=== PATIENT | female | born 1990 | race Caucasian/White ===

== ENCOUNTER 2016-12-17 13:27 | Observation (INO) ==
[2016-12-17 14:05] LABS: Basophils # 0.1 K/mcL (0.0-0.2); Basophils % 0.6 %; Eosinophils # 0.1 K/mcL (0.0-0.6); Eosinophils % 0.9 %; Hematocrit 34.9 % (35.3-44.9); Immature Granulocytes % 4.7 % (0-4); Lymphocytes # 2.1 K/mcL (0.6-4.6); Lymphocytes % 12.6 %; Mean Corpuscular HGB Conc 34.4 g/dL (31.6-35.5); Mean Corpuscular Hemoglobin 28.8 pg (28.0-33.3); Mean Corpuscular Volume 83.7 fL (83.0-100.0); Mean Platelet Volume 10.1 fL (9.4-12.4); Monocytes # 1.1 K/mcL (0.0-1.3); Monocytes % 6.8 %; Neutrophils # 12.1 K/mcL (1.6-8.9); Platelet Count 194 K/mcL (140-400); Red Blood Count 4.17 M/mcL (3.82-4.97); Red Cell Distribution Width 13.4 % (11.5-14.5); Segmented Neutrophils % 74.4 %
[2016-12-17 14:22] LABS: Alanine Aminotransferase 9 Units/L (0-55); Aspartate Amino Transferase 11 Units/L (5-34); BUN/Creatinine Ratio 6 (6-26); Lactate Dehydrogenase 150 Units/L (159-327); Uric Acid 3.8 mg/dL (2.6-6.0); eGFR For African Americans > 60 (> 60); eGFR For Non-African Americans > 60 (> 60)
[2016-12-17 14:23] LABS: Blood Urea Nitrogen 4 mg/dL (7-20)
[2016-12-17 14:32] VITALS: BP 147/89
[2016-12-17 15:05] LABS: Protein/Creatinine Ratio,Urine 0.2 mg/mg (0-0.20)
--- NOTE | 2016-12-17 16:02 | OB/GYN Progress Note ---
Date of Encounter: 12/17/16 Time of Encounter: 16:02 - Assessment and Plan (1) 33 weeks gestation of Current Visit: Yes Status: Acute (2) Chronic hypertension affecting Current Visit: Yes Status: Acute BP's mild range in triage. Pt denies s/sx preeclampsia. Labs WNL. Discharge home with precautions. Follow-up as scheduled for biweekly NST's and BP monitoring. Subjective - Subjective Principal diagnosis: HTN Interval history: 26 year-old presenting at 33w5d for routine PNC and found to have mildly elevated blood pressure. She was sent to triage for PIH evaluation. She denies REY, vision changes, RUQ pain, LOF, or VB. She reports having intermittently elevated blood pressures with her previous pregnancies but was never diagnosed with preeclampsia or started on medication. Her records from this indicate that she has had mildly elevated blood pressures throughout the entire . Objective - Vital Signs Vital Signs: Vital Signs Temp Pulse Resp BP 12/17/16 13:40 98.7 F 111 16 147/89 Intake and Output 12/17/16 12/17/16 12/17/16 07:59 15:59 23:59 Other: Weight 114 kg Patient Weight 12/17/16 23:59 Weight 114 kg - Exam FHR: category 1 FHR comments: NST reactive Auscultation: bilateral: normal Abdomen: Present: soft, gravid Uterus: Absent: tenderness - Labs Labs: Abnormal lab results WBC 16.3 K/mcL (4.3-11.1) H 12/17/16 13:55 Hct 34.9 % (35.3-44.9) L 12/17/16 13:55 Immature Gran % 4.7 % (0-4) H 12/17/16 13:55 Neutrophils # 12.1 K/mcL (1.6-8.9) H 12/17/16 13:55 BUN 4 mg/dL (7-20) L 12/17/16 13:55 Lactate Dehydrogenase 150 Units/L (159-327) L 12/17/16 13:55 Urine Total Protein 27 mg/dL (1-14) H 12/17/16 13:55
== END 2016-12-17 16:32 | disposition home or self-care (01) ==
LOC: 1NENULAB → MERGE 13:27
PROVIDERS: ADMIT Obstetrics & Gynecology; ATTEND Obstetrics & Gynecology

== ENCOUNTER 2017-01-23 05:43 | Inpatient (IN) ==
[2017-01-23] MEDS ORDERED: CeFAZolin Pre 3,000 MG/100 ML 3,000 MG/100 ML BAG IVPB ONE (05:52)
[2017-01-23] MEDS ORDERED: Famotidine 20 MG/2 ML VIAL IVP ONE (05:52)
[2017-01-23] MEDS ORDERED: Metoclopramide 10 MG/2 ML VIAL IVP ONE (05:52)
[2017-01-23] MEDS ORDERED: Ringers Solution, Lactated 1,000 ML ONE ×2 (05:59→08:17)
[2017-01-23] MEDS ORDERED: Ringers Solution, Lactated 1,000 ML IVC SCH (06:00)
[2017-01-23 06:31] LABS: Basophils # 0.1 K/mcL (0.0-0.2); Basophils % 0.6 %; Eosinophils # 0.2 K/mcL (0.0-0.6); Eosinophils % 0.9 %; Hematocrit 36.2 % (35.3-44.9); Immature Granulocytes % 4.2 % (0-4); Lymphocytes # 2.7 K/mcL (0.6-4.6); Mean Corpuscular HGB Conc 33.1 g/dL (31.6-35.5); Mean Corpuscular Hemoglobin 27.2 pg (28.0-33.3); Mean Corpuscular Volume 82.1 fL (83.0-100.0); Mean Platelet Volume 10.1 fL (9.4-12.4); Monocytes # 1.4 K/mcL (0.0-1.3); Monocytes % 8.1 %; Neutrophils # 11.9 K/mcL (1.6-8.9); Platelet Count 246 K/mcL (140-400); Red Blood Count 4.41 M/mcL (3.82-4.97); Red Cell Distribution Width 13.6 % (11.5-14.5); Segmented Neutrophils % 70.2 %
--- NOTE | 2017-01-23 06:43 | OB/GYN History & Physical ---
Date of Encounter: 01/23/17 Time of Encounter: 06:36 Assessment and Plan (1) 39 weeks gestation of Current visit: Yes Status: Acute plan for repeat section (2) H/O section Current visit: Yes Status: Acute (3) Rubella non-immune status, antepartum Current visit: Yes Status: Acute (4) Polyhydramnios affecting in third trimester Current visit: Yes Status: Acute History of Present Illness Chief complaint: repeat HPI: Ms. Stafford is a 26 year old female at 39.0 weeks gestation who presents for repeat . Her has been complicated by hypertension and polyhydramnios. Denies vaginal bleeding, loss of fluid, dizziness, blurred vision, headache. Reports good movement. Labs: GBS -, rubella nonimmune Blood type A+ Past Med Surg Social Fam HX - Past Medical History Medical history: no medical history Psychiatric history: no psych history - Past Surgical History Surgical History: - Social History Smoking Status: Former smoker Smokeless Tobacco Status: No Alcohol use: none Drug use: marijuana - Family History Mother History Unknown: Yes Living Status: Still Living Obstetrical History - Pregnancies : 3 Para: 2 Term: 2 : 0 Ab's: 0 Livin Medications and Allergies Tablet 1 tab PO DAILY 01/23/17 [History] 3 Allergy/AdvReac Type Severity Reaction Status Date / Time No Known Allergies Allergy Verified 01/23/17 06:26 Review of System OB - Constitutional Constitutional ROS IM: as per HPI Exam - Constitutional Constitutional: well developed, well nourished, no acute distress - HEENT HEENT: Normocephaly, Mucus Membranes Moist - Neck Neck exam: normal inspection - Lungs Respiratory exam: CTAB - Cardiovascular Cardiovascular exam: RRR, +S1, +S2 - Abdomen Abdomen: Present: bowel sounds normal, gravid, non tender - Extremities Extremities exam: normal capillary refill, normal inspection, pedal edema, warm Results Result Diagrams: 01/23/17 06:15 Abnormal lab results WBC 17.0 K/mcL (4.3-11.1) H 01/23/17 06:15 MCV 82.1 fL (83.0-100.0) L 01/23/17 06:15 MCH 27.2 pg (28.0-33.3) L 01/23/17 06:15 Immature Gran % 4.2 % (0-4) H 01/23/17 06:15 Neutrophils # 11.9 K/mcL (1.6-8.9) H 01/23/17 06:15 Monocytes # 1.4 K/mcL (0.0-1.3) H 01/23/17 06:15 All other labs normal. - VTE Reasons for not Prescribing Prophylaxis: Treatment not Indicated - Low risk for VTE
[2017-01-23] MEDS ORDERED: ceFAZolin 3,000 MG in D5% in Water 100 ML IVPB ONE (07:24)
[2017-01-23] MEDS ORDERED: *HR* Oxytocin 10 UNIT/ML VIAL IM ONE (07:33)
[2017-01-23] MEDS ORDERED: Ondansetron 4 MG/2 ML VIAL ONE (07:36)
[2017-01-23] MEDS ORDERED: *HR* Phenylephrine 10 MG/ML VIAL ONE (07:36)
[2017-01-23] MEDS ORDERED: *HR* FentaNYL (PF) 100 MCG/2 ML VIAL ONE (07:36)
[2017-01-23] MEDS ORDERED: *HR* Morphine Sulfate/PF 5 MG/10 ML AMPUL ONE (07:36)
--- NOTE | 2017-01-23 07:36 | Anesthesia Evaluation PreOp ---
Date of Encounter: 01/23/17 Time of Encounter: 07:20 - Past History Planned Operation: Repeat CSection, BPS Cardiac History: Denies any Significant Hx, HTN (With ) Pulmonary History: Denies Any Significant HX, Asthma (Childhood. 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 Other Medical History: Denies Any Significant HX Anesthesia History: No Prior Anesthetic Complications, Past Anesthesia ( CSection x2) : Yes Alcohol Use: none Drug use: marijuana Medications and Allergies Tablet 1 tab PO DAILY 01/23/17 [History] 3 Allergy/AdvReac Type Severity Reaction Status Date / Time No Known Allergies Allergy Verified 01/23/17 06:26 - Meds/Allergy Pre-op Review Medications Reviewed: Yes Allergies Reviewed: Yes Beta Blockers on Current Med List: No Anesthesia Results - Labs 01/23/17 06:15 Anesthesia Exam Height: 1.68m Weight: 117.8kg NPO (# of Hours): >8hr Pain Scale: 0 Pain Scale Used: Numeric (1 - 10) - HEENT Pupil (Motor): Pupils equal Mallampati: II Teeth: Normal Oral Opening: Greater than 3 - CLAY WORKER LOC: Oriented CLAY WORKER Motor: Normal RUE, Normal LUE, Normal RLE, Normal LLE, Normal Face CLAY WORKER Sensory: Normal: RUE, LUE, RLE, LLE, Face - Cardiac Rhythm: Regular Murmur: None JVD: No Carotid Bruit: No - Pulmonary Breath Sounds: bilateral Clear Respiratory Effort: Symmetrical Anesthesia Assess/Plan ASA Score: 2 Modified Harlan Scale for Level of Consciousness: Cooperative, oriented, and tranquil Anesthetic Plan: Regional Autologous Blood: Yes Monitoring Plan: Standard Monitors Recovery Plan: PACU
[2017-01-23] MEDS ORDERED: *HR* HYDROmorphone (PF) 1 MG/ML SYRINGE IVP PRN ×2 (08:32→12:28)
[2017-01-23] MEDS ORDERED: Ondansetron 4 MG/2 ML VIAL IVP PRN ×2 (08:32→09:33)
[2017-01-23] MEDS ORDERED: Naloxone 0.4 MG/ML INJ IVP PRN (08:32)
[2017-01-23] MEDS ORDERED: Oxytocin 20 units/ LR 1000 mL 20 UNIT/1,000 ML BAG IVC ONE (09:16)
--- NOTE | 2017-01-23 09:30 | OB/GYN Procedure Note ---
Section - Date of procedure: 01/23/17 Preop diagnosis: desires repeat , desires sterilization Post-op diagnosis: same Procedure: repeat low transverse, bilateral tubal ligation Surgeon: Fani Faustin Estimated blood loss (cc): 500 Anesthesia Type: General section complications: none Disposition: L&D Recovery Room Specimens: Placenta, Right tube segment, Left tube segment - (s) Infant A Delivery Date: 01/23/17 Delivery Time: 08:40 Presentation: vertex Gender: Male Viability: Viable Pounds: 8 Ounces: 3 Gram Weight: 3710 kg Shoulder Dystocia: not encountered Placenta: uterine exploration Cord: 3 umbilical vessels - Narrative Narrative: Patient was brought to the operating room where she was given satisfactory anesthesia. The abdomen was prepped and draped in a sterile fashion. A Pfannenstiel incision was made and carried sharply down to the level of fascia. The fascia was incised transversely. The fascia was dissected away from the underlying rectus muscles. With sharp and blunt dissection, rectus muscles were divided in midline. The perineum was entered bluntly. The transverse incision was made across the bladder peritoneum. The bladder was dissected away from the underlying lower uterine segment. The bladder retractor was placed to protect the bladder. The lower uterine segment was entered sharply with a scalpel. Incision was manually extended. Clear amniotic fluid was encountered. The infant 's head was pulled up and delivered easily as were the shoulders and body. The mouth and oropharynx were suctioned. The cord was clamped and cut. The was passed off to the waiting nurse in satisfactory condition. Placenta was extracted completely and found to be intact. Uterus was explored and found to be empty. Uterus was delivered through the abdominal incision and massaged vigorously. Intravenous Pitocin was administered. Clamps were placed about the margins of the uterine incision, which was closed primarily with a running locking stitch of 0 Vicryl with adequate hemostasis. At this point, attention was diverted to the patient's tubes, a [place] clamp grasped the isthmic portion of each tube and approximately 1-cm knuckle on either side was tied off with two lengths of 0 plain catgut. Intervening knuckle was excised and passed off the field. The proximal end of the tubal mucosa was cauterized. Cul-de-sac and gutters were suctioned vigorously. The uterus was returned to its proper anatomic position in the abdomen. The fascia was closed with a simple running stitch of 0 vicryl. The subcutaneous tissue was reapproximated with 3-0 vicryl. The skin was closed with running subcuticular of 4-0 vicryl. Uterus was expressed of its contents. Patient was brought to the recovery room in satisfactory condition. There were no complications. There was 500 cc of blood loss. All sponge, needle, and instrument counts were reported to be correct.
[2017-01-23] MEDS ORDERED: Metoclopramide 10 MG/2 ML VIAL IVP PRN (09:33)
[2017-01-23] MEDS ORDERED: Simethicone 80 MG TAB.CHEW PO PRN (09:33)
[2017-01-23] MEDS ORDERED: Sennosides 8.6 MG TABLET PO PRN (09:33)
[2017-01-23] MEDS ORDERED: *HR* OxyCODONE/APAP 5/325 TABLET PO PRN (09:33)
[2017-01-23] MEDS ORDERED: *HR* Morphine 2 MG/ML SYRINGE IVP PRN (12:28)
--- NOTE | 2017-01-23 12:28 | Anesthesia Evaluation Post Op ---
Date of Encounter: 01/23/17 Time of Encounter: 11:40 - Lungs Lungs: Clear Ascult./Percussion - Airway Airway: Non-obstructed - Cardiovascular Regular Rate - Mental Status Mental Status: Alert & Oriented, Answers Appropriately - Pain Pain Scale: 3 Pain Scale used: Numeric (1 - 10) - Nausea Vomiting Nausea Vomiting: Not Present - Hydration Hydration: NPO, Wallace catheter - Discharge PostOp Status: Transfer Patient to floor Attestation: Patient meets discharge criteria for floor transfer. MOEx4.
[2017-01-23] MEDS: Oxytocin 20 units/ LR 1000 mL 20 UNIT/1,000 ML BAG IVC SCH ×2 (15:28→23:49)
[2017-01-24] MEDS: Ibuprofen 600 MG TABLET PO PRN ×2 (02:14→19:29)
[2017-01-24 05:57] LABS: Basophils # 0.1 K/mcL (0.0-0.2); Basophils % 0.4 %; Eosinophils # 0.2 K/mcL (0.0-0.6); Hematocrit 32.1 % (35.3-44.9); Hemoglobin 10.3 g/dL (11.5-15.4); Immature Granulocytes % 2.5 % (0-4); Lymphocytes # 1.7 K/mcL (0.6-4.6); Lymphocytes % 10.3 %; Mean Corpuscular HGB Conc 32.1 g/dL (31.6-35.5); Mean Corpuscular Hemoglobin 26.6 pg (28.0-33.3); Mean Corpuscular Volume 82.9 fL (83.0-100.0); Mean Platelet Volume 9.8 fL (9.4-12.4); Monocytes # 1.5 K/mcL (0.0-1.3); Monocytes % 9.4 %; Neutrophils # 12.3 K/mcL (1.6-8.9); Platelet Count 184 K/mcL (140-400); Red Blood Count 3.87 M/mcL (3.82-4.97); Red Cell Distribution Width 13.7 % (11.5-14.5); Segmented Neutrophils % 76.4 %
[2017-01-24] MEDS: Prenatal Vit/FA 1 EACH TABLET PO SCH (08:07)
--- NOTE | 2017-01-24 09:28 | OB/GYN Progress Note ---
Date of Encounter: 01/24/17 Time of Encounter: 09:26 - Assessment and Plan (1) Status post section Current Visit: Yes Status: Acute s/p RC/S with BTL, POD# 1 doing well, cont current inpt care, ambulation encouraged Subjective - Subjective Patient reports: appetite normal, voiding normally, pain well controlled, ambulating normally : doing well Objective - Vital Signs Latest vital signs: Vital Signs Temp Pulse Pulse Resp BP Pulse Ox 01/24/17 07:30 98.4 F 92 18 120/79 01/24/17 04:28 98.4 F 93 20 118/68 97 01/23/17 23:55 98.7 F 100 16 123/78 98 01/23/17 21:07 98.8 F 106 20 134/82 97 01/23/17 16:21 98.2 F 111 18 131/75 97 01/23/17 15:15 98.4 F 97 16 134/87 97 01/23/17 14:15 98.4 F 97 16 134/87 97 01/23/17 14:10 98.4 F 97 16 134/87 97 01/23/17 13:15 98.7 F 103 103 16 138/84 96 01/23/17 12:45 98.2 F 99 99 16 135/87 97 01/23/17 12:32 98.6 F 104 104 18 134/84 96 Intake and Output 01/23/17 01/24/17 01/24/17 23:59 07:59 15:59 Intake Total 1240 / 1240 500 / 500 1000 / 1000 Output Total 500 / 500 1850 / 1850 Balance 740 / 740 -1350 / -1350 1000 / 1000 Intake: IV Fluids 1000 / 1000 1000 / 1000 Pitocin 20 unit In 1,000 1000 / 1000 1000 / 1000 ml @ 125 mls/hr IVC .Q8H DEJA Rx#:[id number] Oral 240 / 240 500 / 500 Output: Catheter 500 / 500 1850 / 1850 Other: Meal Dinner Percent of Meal Consumed 25% - Exam Lungs: bilateral: normal Chest: Normal S1, Normal S2 Extremities: Present: normal Abdomen: Present: soft Incision: Present: dressed Uterus: Present: firm - Labs Labs: Laboratory Results - last 24 hr 01/24/17 05:35 WBC 16.1 H RBC 3.87 Hgb 10.3 L D Hct 32.1 L MCV 82.9 L MCH 26.6 L MCHC 32.1 RDW 13.7 Plt Count 184 MPV 9.8 Immature Gran % 2.5 Seg Neutrophils % 76.4 Lymphocytes % 10.3 Monocytes % 9.4 Eosinophils % 1.0 Basophils % 0.4 Neutrophils # 12.3 H Lymphocytes # 1.7 Monocytes # 1.5 H Eosinophils # 0.2 Basophils # 0.1
[2017-01-25] MEDS: Ibuprofen 600 MG TABLET PO PRN (06:14)
[2017-01-25 08:47] VITALS: BP 121/81
--- NOTE | 2017-01-25 08:59 | Discharge Summary ---
Date of Encounter: 01/25/17 Time of Encounter: 08:55 - Discharge Diagnosis (1) Status post section Priority: Primary Status: Acute - Discharge Medications Prescriptions: Ibuprofen [Motrin] 600 mg PO Q6HR PRN #60 tab PRN Reason: Pain Home Medications: Tablet 1 tab PO DAILY 01/23/17 [History] Ibuprofen [Motrin] 600 mg PO Q6HR PRN #60 tab 01/25/17 [Rx] Allergies/Adverse Reactions: 3 Allergy/AdvReac Type Severity Reaction Status Date / Time No Known Allergies Allergy Verified 01/23/17 06:26 Data Procedures and tests throughout hospitalization: Laboratory Tests 01/23/17 01/24/17 06:15 05:35 WBC 17.0 H 16.1 H RBC 4.41 3.87 Hgb 12.0 10.3 L D Hct 36.2 32.1 L MCV 82.1 L 82.9 L MCH 27.2 L 26.6 L MCHC 33.1 32.1 RDW 13.6 13.7 Plt Count 246 184 MPV 10.1 9.8 Immature Gran % 4.2 H 2.5 Seg Neutrophils % 70.2 76.4 Lymphocytes % 16.0 10.3 Monocytes % 8.1 9.4 Eosinophils % 0.9 1.0 Basophils % 0.6 0.4 Neutrophils # 11.9 H 12.3 H Lymphocytes # 2.7 1.7 Monocytes # 1.4 H 1.5 H Eosinophils # 0.2 0.2 Basophils # 0.1 0.1 Date of admission: 01/23/17 05:43 Discharging clinician: Padmini Paz Anticipated date of discharge: 01/25/17 - Patient Status Disposition: Home, Self-Care Condition: Good Functional capacity at discharge: independent ambulation Overall status at discharge: patient is progressing back to baseline - Discharge Instructions Follow Up With: Fani Faustin MD [Partnered Physician] - - Diet and Activity Activity: increase activity as tolerated, resume usual activities as tolerated Diet: regular diet Hospital Course Procedures: Rpt C/S w/ BPS Reason for admission: section Delivery: section Laceration: none Other procedures: tubal ligation complications: none Discharge diagnosis: IUP at term delivered baby: male Hospital course: Uncomplicated, patient has good by mouth pain control with ibuprofen, is ambulating, voiding and has return of bowel function. She is requesting discharge Time Attestation: Total time spent providing and/or coordinating discharge services: Time Spent: Less than 30 minutes Specific discharge activities: Pelvic rest, no lifting and no driving - VTE Reasons for not Prescribing Prophylaxis: Treatment not Indicated - Low risk for VTE Documentation of Mechanical Device: Intermittent pneumatic compression device Exam - Constitutional Vitals: Temp Pulse Resp BP Pulse Ox 98.7 F 92 18 121/81 98 01/25/17 07:30 01/25/17 07:30 01/25/17 07:30 01/25/17 07:30 01/24/17 19:30 General appearance IM: A&O X 3, morbidly obese, pleasant, no acute distress - Respiratory Respiratory exam: Present: CTAB. Absent: respiratory distress - Cardiovascular Cardiovascular exam IM: Present: RRR. Absent: irregular rhythm - GI/Abdominal GI/Abdominal exam IM: normal bowel sounds, soft, no peritoneal signs Incision: normal, dry, dressed - Rectal Rectal exam: deferred - Uterine Tone: Firm Uterus Position: At Umbilicus, Midline - Extremities Exam Extremities exam IM: Present: normal inspection, warm. Absent: calf tenderness , pedal edema - Neurological Exam Neurological exam: alert, no focal deficits
[2017-01-25] MEDS: Prenatal Vit/FA 1 EACH TABLET PO SCH (09:02)
== END 2017-01-25 12:00 | disposition home or self-care (01) | DRG 540 ==
LOC: 1NENULAB 05:43 → 1NENUOBS 12:26
PROVIDERS: ADMIT Student in an Organized Health Care Education/Training Program; ATTEND Student in an Organized Health Care Education/Training Program